=== PATIENT | female | born 1975 | race Caucasian/White ===

== ENCOUNTER 2025-02-11 06:40 | Emergency (ER) | payer OTHER ==
[~2025-02-11] VITALS: Ht 165.1 cm; Wt 104.0 kg
[2025-02-11 06:42] VITALS: TEMP 98.3
--- NOTE | 2025-02-11 06:46 | ELECTROCARDIOGRAPH REPORT ---
[facility] Test Date: 2025-02-11 Test Time: 06:44:23 Pat Name: TARIK RICHEY Department: [facility] Patient ID: [facility]-[id number] Room: Gender: F [employer]: : 1975 Requested By: FELIX CHO Order Number: [id number] Reading MD: Measurements Intervals [place] Rate: 85 P: 12 TX: 180 QRS: -6 QRSD: 90 T: 39 QT: 360 QTc: 428 Interpretive Statements Sinus rhythm Low voltage, precordial leads LVH by voltage Baseline wander in lead(s) V3,V5,V6 Please click the below link to view image of tracing.
--- NOTE | 2025-02-11 06:58 | Physician Documentation ---
History of Present Illness ~ Chief Complaint: Chest Pain Stated Complaint: CHEST PAINS Time Seen by MD: 06:57 HPI 49-year-old female presenting with chest pressure She tells me over the past couple of weeks she has had a pressure sensation in her central chest. She states it has been intermittent, although it has been more constant over the past couple of days. It is located in the central chest with no radiation including no radiation to her arms, neck or back. She does report some intermittent shortness of breath, although she states she thinks she was having a panic attack last night when she felt short of breath. She does report some mild epigastric discomfort and mild intermittent nausea. No fevers, productive cough, or other current infectious symptoms. No vomiting or diarrhea. No leg pain or swelling. No history of heart disease. No history of hypertension, hyperlipidemia, smoking, or early family heart disease. Her father did have a heart attack at age 65. She has never had any heart related testing. No history of lung problems. No history of significant acid reflux Medication Reconciliation Allergies: Coded Allergies: No Known Allergies (Unverified , 02/11/25) Review of Systems Constitutional: Denies: fever Cardiovascular: Reports: chest pain Gastrointestinal: Reports: abdominal pain, nausea Physical Exam Vital Signs: Temperature: 98.3, Source: Oral, Heart Rate: 84, Respiratory Rate: 18, BP: 150/74, Pulse Oximetry: 97, Weight: 104.000 Oxygen Flow Rate: 0 Physical Exam General: This is a pleasant and mildly anxious appearing middle-aged female, at bedside HEENT: Atraumatic, oropharynx is moist Heart: Regular rate and rhythm, no murmur, normal-appearing peripheral perfusion including normal left radial pulse Lungs: Clear breath sounds bilateral, no wheezing or crackles, normal work of breathing, normal oxygen saturation on room air Abdomen: Soft, nondistended, mild discomfort elicited on palpation in the epigastric region only, otherwise nontender, no rebound or guarding Extremities: Warm and well-perfused, no posterior calf for thigh tenderness, no edema Neuro: Alert and oriented, no focal deficits Psychiatric: Appears mildly anxious about her condition, but is cooperative with exam Progress Results/Orders Results/Orders Orders - FELIX CHO MD Chest,Single View (02/11/25 06:41) Monitor (02/11/25 06:41) Saline Lock (02/11/25 06:41) Oxygen (02/11/25 06:41) Hs Troponin I W Calculations (02/11/25 08:41) Hs Troponin I W Calculations (02/11/25 09:41) Completed Orders - FELIX CHO MD Chest,Single View (02/11/25 06:41) Cbc/Diff (02/11/25 06:41) BMP (02/11/25 06:41) PBNP (02/11/25 06:41) Electrocardiogram (02/11/25 06:41) Hs Troponin I W Calculations (02/11/25 06:41) Vital Signs 02/11/25 02/11/25 02/11/25 06:42 07:27 07:30 Temp 98.3 Pulse 84 80 Resp 18 12 B/P (MAP) 150/74 132/75 (94) Pulse Ox 97 98 O2 Flow Rate 0 0 Laboratory Tests Test 02/11/25 06:44 White Blood Count 8.1 Red Blood Count 5.02 Hemoglobin 14.8 Hematocrit 43.4 Mean Corpuscular Volume 86.5 Mean Corpuscular Hemoglobin 29.5 Mean Corpuscular Hemoglobin Concent 34.1 Red Cell Distribution Width 12.8 Platelet Count 236 Mean Platelet Volume 7.5 Neutrophils (%) (Auto) 58.7 Lymphocytes (%) (Auto) 31.9 Monocytes (%) (Auto) 7.7 Eosinophils (%) (Auto) 0.9 Basophils (%) (Auto) 0.8 Neutrophils # (Auto) 4.8 Lymphocytes # (Auto) 2.6 Monocytes # (Auto) 0.6 Eosinophils # (Auto) 0.1 Basophils # (Auto) 0.1 CBC Comment Sodium Level 137 Potassium Level 3.9 Chloride Level 104 Carbon Dioxide Level 25.9 Anion Gap 7 L Blood Urea Nitrogen 9 Creatinine 0.85 Estimated GFR/1.73 m2 71 BUN/Creatinine Ratio 10.6 Glucose Level 110 H Calcium Level 9.1 Troponin I High Sensitivity 5 Pro-B-Type Natriuretic Peptide < 30 Albumin 4.1 Chemistry Comments EKG/XRAY/CT/US/VASC/MRI EKG : Additional Comment I personally interpreted the EKG and this shows: Sinus rhythm, rate 85, QTC 428, no STEMI or acute ischemic changes Chest X-Ray : Additional Comments I personally interpreted the x-ray, and it shows: No focal consolidation, no pulmonary edema, no mediastinal widening Heart Score: Heart Score Response (Comments) Value History Slightly Suspicious 0 EKG Normal 0 Age 45-64 1 Risk Factors 1 or 2 risk factors 1 Troponin Normal limit 0 Total 2 Medical Decision Making Differential Dx:Considerations: Include: angina, aortic dissection, chest wall pain, cholelithiasis, costochondritis, esophageal reflux/spasm, gastritis, myocardial infarction, pericarditis, pneumonia, pulmonary embolus Additional Information The patient presents with a sensation of chest pressure over the past couple of weeks. On exam she is well-appearing, has normal vital signs, has some mild epigastric discomfort, no other concerning findings. EKG is reassuring. Chest x-ray unremarkable. Labs were unremarkable including a normal troponin. Given that her symptoms have been ongoing for several days, a single troponin seems reasonable. On re-evaluation, she remains well-appearing. I had a long discussion with the patient and her regarding possible causes for her chest discomfort including gastritis or chest wall pain. She has an appointment with the primary doctor in 1 week. After this discussion we agreed on the following plan: She will try taking an antacid medication daily, she will avoid NSAIDs, and eat a bland diet. She will follow up with the primary care doctor for further evaluation to see if these treatments are helping, and to discuss w hether she needs further cardiac testing including a stress test. Return precautions given Departure Time of Disposition: 07:54 Disposition: 01 HOME / SELF CARE / HOMELESS Impression: Primary Impression: Chest pain Condition: Stable Discharge Instructions: [place] Diet, Gastritis, Adult, Nonspecific Chest Pain, Adult Referrals: NO PRIMARY CARE PROVIDER (PCP) Education Educated: Patient, Family Educated regarding: diagnosis, treatment, need for follow up Signature Scribe Signature: nathan Attestation: FELIX Reese MD Feb 11, 2025 06:58
[2025-02-11 06:59] LABS: MEAN PLATELET VOLUME 7.5 FL (7.4-10.4); RED CELL DISTRIBUTION WIDTH 12.8 % (11.5-14.5)
[2025-02-11 07:20] LABS: CREATININE 0.85 MG/DL (0.40-0.90); PRO BRAIN NATRIURETIC PEPTIDE < 30 PG/ML (0-125); TOTAL CARBON DIOXIDE 25.9 MMOL/L (24-32); eCRCL 73 ML/MIN; eGFR 71 ML/MIN
--- NOTE | 2025-02-11 07:24 | RADIOLOGY REPORT ---
CHEST RADIOGRAPH Indication: CP Technique: Single frontal view of the chest was obtained Comparison: None FINDINGS: Lines and Tubes: None Lungs: No focal consolidation. Pleura: No effusion. No pneumothorax. Cardiomediastinal contours: Unremarkable Bones: No acute osseous abnormality. IMPRESSION: No acute cardiopulmonary disease.
[2025-02-11 08:05] VITALS: BP 123/67; PULSE 76; RESP 14; O2SAT 98
== END 2025-02-11 08:09 | disposition home or self-care (01) ==
LOC: ER 06:41
DX: R07.89 Other chest pain (principal)
CPT/HCPCS: 36415; 71045; 80048; 83880; 84484; 85025; 93005; 99285